=== PATIENT | female | born 1945 | race Caucasian/White ===

== ENCOUNTER → 2016-06-02 | Outpatient (CLI) | payer MEDICARE | END | disposition short-term general hospital (02) | LOC: CLPAIN 10:01 | DX: M47.816 Spondylosis without myelopathy or radiculopathy, lumbar region (principal); G89.4 Chronic pain syndrome ==

== ENCOUNTER → 2016-08-17 | Outpatient (CLI) | payer MEDICARE | END | disposition short-term general hospital (02) | LOC: CLCARD 09:51 | DX: I25.10 Atherosclerotic heart disease of native coronary artery without angina pectoris (principal); I10 Essential (primary) hypertension; E78.5 Hyperlipidemia, unspecified; R94.31 Abnormal electrocardiogram [ECG] [EKG]; R00.1 Bradycardia, unspecified; R93.1 Abnormal findings on diagnostic imaging of heart and coronary circulation; E11.9 Type 2 diabetes mellitus without complications; E03.9 Hypothyroidism, unspecified ==

== ENCOUNTER → 2016-09-06 | Outpatient (CLI) | payer MEDICARE | END | disposition short-term general hospital (02) | LOC: CLNEUR 08:37 | DX: G25.2 Other specified forms of tremor (principal); E11.9 Type 2 diabetes mellitus without complications ==

== ENCOUNTER → 2016-09-14 | Outpatient (CLI) | payer MEDICARE | END | disposition short-term general hospital (02) | LOC: CLCARD 09:33 | DX: E78.5 Hyperlipidemia, unspecified (principal); I25.10 Atherosclerotic heart disease of native coronary artery without angina pectoris; E11.9 Type 2 diabetes mellitus without complications; E03.9 Hypothyroidism, unspecified; I10 Essential (primary) hypertension; E83.52 Hypercalcemia ==